=== PATIENT | female | born 1950 | race Caucasian/White ===

== ENCOUNTER → 2016-12-06 | Outpatient (CLI) | payer MEDICARE, OTHER ==
[~2016-12-06] MED LIST: BYSTOLIC5 MG PO; CLARINEX5 MG PO; KEFLEX500 MG PO; LANTUS (IN100 UNIT/M SUB-Q; LEVOTHYROXINE100 MCG PO; MUCINEX600 MG PO; NOVOLOG100 UNIT/M SUB-Q; PROBIOTIC1 EAC1 PO; ZOCOR40 MG PO
== END | disposition disaster alternative care site (69) ==
LOC: GRAD 11-03 10:45
DX: N20.0 Calculus of kidney (principal)